=== PATIENT | male | born 1975 | race Caucasian/White ===

== ENCOUNTER 2022-04-21 21:09 | Emergency (ER) | payer SELFPAY ==
[2022-04-22] MEDS ORDERED: Lidocaine 1% 10 ML MDV INJECT ONE (00:40)
[2022-04-22] MEDS ORDERED: Diphtheria,Pertussis(Acell),Tetanus Vaccine 0.5 ML Syringe IM ONE (00:40)
[2022-04-22] MEDS ORDERED: ceFAZolin 1 GM Vial IM ONE (00:51)
[2022-04-22] MEDS ORDERED: Cephalexin 500 MG Cap PO ONE (02:03)
== END 2022-04-22 02:11 | disposition home or self-care (01) ==
LOC: JD.ED 21:09
DX: S62.611A Displaced fracture of proximal phalanx of left index finger, initial encounter for closed fracture (principal); S61.412A Laceration without foreign body of left hand, initial encounter; Z79.899 Other long term (current) drug therapy; Z23 Encounter for immunization; W23.1XXA Caught, crushed, jammed, or pinched between stationary objects, initial encounter
CPT/HCPCS: 12001; 73130; 90471; 90715; 96372; 99283; A9270; J0690; 12011; 29125